=== PATIENT | female | born 1955 | race African-American/Black ===

== ENCOUNTER 2017-03-21 11:32 | Day surgery (SDC) | payer OTHER ==
[2017-03-21] MEDS ORDERED: MARCAINE 0.25% WITH EPI IJ ONE (12:08)
[2017-03-21] MEDS ORDERED: KENALOG INJ 40 MG ONE (12:08)
[2017-03-21] MEDS ORDERED: XYLOCAINE 2 % (PLAIN) ONE (12:08)
[2017-03-21 12:55] VITALS: BP 116/64
== END 2017-03-21 12:55 | disposition home or self-care (01) | DRG 552 ==
LOC: SURG1 11:32
PROVIDERS: ATTEND Specialist
PROC: 3E0R3BZ Introduction of Anesthetic Agent into Spinal Canal, Percutaneous Approach (ICD-10-PCS; principal; 2017-03-21 13:15)
PROC: 3E0R33Z Introduction of Anti-inflammatory into Spinal Canal, Percutaneous Approach (ICD-10-PCS; principal; 2017-03-21 13:15)
DX: M54.32 Sciatica, left side (principal)
CPT/HCPCS: 64483; 76000; S0020; J2001; J3301

== ENCOUNTER 2017-04-13 11:43 | Day surgery (SDC) | payer OTHER ==
[2017-04-13] MEDS ORDERED: KENALOG INJ 40 MG ONE (12:46)
[2017-04-13] MEDS ORDERED: XYLOCAINE 1 % (PLAIN) ONE (12:46)
[2017-04-13] MEDS ORDERED: MARCAINE 0.25% WITH EPI IJ ONE (12:46)
--- NOTE | 2017-04-13 12:51 | DR.UPDATE ---
H&P Update History and Physical Update: History and Physical reviewed and patient examined. Changes noted: NO Yes with the following:agree with H&P from Dr Ibarra. will perform interlaminar josh L4-5 left
[2017-04-13 13:17] VITALS: BP 127/70
== END 2017-04-13 13:20 | disposition home or self-care (01) | DRG 552 ==
LOC: SURG1 11:43
PROVIDERS: ATTEND Specialist
PROC: 3E0R33Z Introduction of Anti-inflammatory into Spinal Canal, Percutaneous Approach (ICD-10-PCS; principal; 2017-04-13 12:00)
PROC: 3E0R3BZ Introduction of Anesthetic Agent into Spinal Canal, Percutaneous Approach (ICD-10-PCS; principal; 2017-04-13 12:00)
PROC: B01BZZZ Fluoroscopy of Spinal Cord (ICD-10-PCS; principal; 2017-04-13 12:00)
DX: M54.32 Sciatica, left side (principal)
CPT/HCPCS: 62323; 76000; A4222; S0020; J2001; J3301

== ENCOUNTER 2017-09-12 10:02 | Day surgery (SDC) | payer OTHER ==
--- NOTE | 2017-09-12 10:48 | DR.UPDATE ---
H&P Update History and Physical Update: History and Physical reviewed and patient examined. Changes noted: NO Yes with the following:agree with H&P from Dr Ibarra. Will perform interlaminar josh L4-5
[2017-09-12] MEDS ORDERED: MARCAINE 0.25% INJ ONE (10:52)
[2017-09-12] MEDS ORDERED: KENALOG INJ 40 MG IM ONE (10:52)
[2017-09-12] MEDS ORDERED: XYLOCAINE 1 % (PLAIN) ONE (10:52)
[2017-09-12 11:50] VITALS: BP 165/68
== END 2017-09-12 11:40 | disposition home or self-care (01) | DRG 552 ==
LOC: SURG1 10:02
PROVIDERS: ATTEND Specialist
PROC: 3E0R3BZ Introduction of Anesthetic Agent into Spinal Canal, Percutaneous Approach (ICD-10-PCS; 2017-09-12)
PROC: 3E0R33Z Introduction of Anti-inflammatory into Spinal Canal, Percutaneous Approach (ICD-10-PCS; principal; 2017-09-12 12:00)
DX: M54.31 Sciatica, right side (principal)
CPT/HCPCS: 62323; 76000; S0020; J2001; J3301

== ENCOUNTER 2017-11-21 11:56 | Day surgery (SDC) | payer OTHER ==
[2017-11-21] MEDS ORDERED: KENALOG INJ 40 MG IM ONE (12:16)
[2017-11-21] MEDS ORDERED: MARCAINE 0.25% INJ ONE (12:16)
--- NOTE | 2017-11-21 12:24 | DR.UPDATE ---
H&P Update History and Physical Update: History and Physical reviewed and patient examined. Changes noted: NO Yes with the following:agree with H&P from Dr Ibarra. will perform L4-5 josh left
[2017-11-21 12:59] VITALS: BP 160/75
== END 2017-11-21 13:00 | disposition home or self-care (01) | DRG 552 ==
LOC: SURG1 11:56
PROVIDERS: ATTEND Specialist
PROC: 3E0S33Z Introduction of Anti-inflammatory into Epidural Space, Percutaneous Approach (ICD-10-PCS; 2017-11-21)
PROC: 3E0S3BZ Introduction of Anesthetic Agent into Epidural Space, Percutaneous Approach (ICD-10-PCS; principal; 2017-11-21 12:15)
DX: M54.32 Sciatica, left side (principal)
CPT/HCPCS: 62323; 76000; A4222; S0020; J3301